=== PATIENT | male | born 1970 | race Caucasian/White ===

== ENCOUNTER 2022-07-17 09:24 | Emergency (ER) | payer SELFPAY ==
[2022-07-17 09:25] VITALS: BP 145/96; PULSE 87; RESP 14; TEMP 36.8; O2SAT 97; BMI 20.9
--- NOTE | 2022-07-17 09:27 | XRR_ITS ---
PROCEDURE INFORMATION: Exam: XR Chest Exam date and time: 07/17/2022 9:43 AM Age: 52 years old Clinical indication: Cough and dyspnea; Additional info: Dyspnea/cough TECHNIQUE: Imaging protocol: Radiologic exam of the chest. Views: 1 view. COMPARISON: No relevant prior studies available. FINDINGS: Lungs: The lung parenchyma is clear. Pleural spaces: No pneumothorax. No pleural effusion. Heart/Mediastinum: The cardiomediastinal silhouette is within normal limits. Bones/joints: Unremarkable. XR/XR chest 1V portable [id number] IMPRESSION: No acute cardiopulmonary abnormality.
[2022-07-17 09:32] VITALS: BP 145/96; PULSE 77; RESP 17; O2SAT 98
--- NOTE | 2022-07-17 09:37 | ECG_ITS ---
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 Measurements Intervals [place] Rate: 80 P: 62 AR: 152 QRS: 54 QRSD: 116 T: 50 QT: 383 QTc: 442 Interpretive Statements SINUS RHYTHM MODERATE INTRAVENTRICULAR CONDUCTION DELAY [110+ ms QRS DURATION] No previous ECG available for comparison Electronically Signed On 07-17-2022 11:53:14 CDT by Christo Hernandez M.D. [email or web address]
[2022-07-17] MEDS: sodium chloride 0.9% 1,000 ML 999 ML IV (09:50)
[2022-07-17 09:51] LABS: Basophils # 0.1 10^3/uL (0.0-0.1); Basophils % 0.7 %; Eosinophils # 0.1 10^3/uL (0.0-0.8); Eosinophils % 1.1 %; Lymphocytes # 1.8 10^3/uL (0.8-4.8); Lymphocytes % 25.9 %; Mean Corpuscular HGB Conc 32.6 g/dL (30.0-36.0); Mean Corpuscular Hemoglobin 31.1 pg (28.0-34.0); Mean Corpuscular Volume 95.6 fl (80-94); Mean Platelet Volume 9.6 fL (7.4-10.4); Monocytes # 0.6 10^3/uL (0.2-0.9); Monocytes % 7.9 %; Neutrophils # 4.48 10^3/uL (1.8-7.7); Nucleated Red Blood Cells % 0 %; Platelet Count 300 10^3/cmm (130-400); Red Cell Distribution Width 13.2 % (12.1-15.1)
[2022-07-17 09:52] LABS: Glucose Point of Care 82 mg/dL (70-110)
[2022-07-17 10:02] VITALS: RESP 18
--- NOTE | 2022-07-17 10:35 | ED_ITS ---
HPI - Dizziness General: Chief Complaint: Dizziness Stated Complaint: HYPERTENSION Time Seen by Provider: 07/17/22 09:26 Source: patient Mode of arrival: EMS History of Present Illness: HPI Narrative: 52-year-old male presents emergency room with complaint of near syncopal episode and elevated blood pressure. 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 He never actually fell. He states he feels much better now he denies any abdominal or chest pain or shortness of breath. He felt really weak and dizzy for a time after that by the time he arrived here he states all of his symptoms have resolved. MD elicited complaint: dizziness and lightheadedness Onset (ago): minute(s) Timing: sudden onset Severity: mild Exacerbating factors: change in body position Relieving factors: remaining still Associated symptoms: Denies abnormal vaginal bleeding, change in hearing, chest pain, chills, cough, diaphoresis, ear discharge, ear pressure, fevers/chills, headache(s), malaise, nausea, nasal congestion, palpitations, rash, short of breath, syncope, tinnitus, vomiting or weakness Associated neuro symptoms: Deny confusion, difficulty speaking, dysphagia, diplopia, extremity weakness, facial numbness, facial weakness, gait changes, numbness in extremities or visual changes Review of Systems Const: Denies: fever(s), chills, fatigue, malaise or diaphoresis ENMT: Denies: ear discharge, change in hearing, tinnitus or nasal congestion Card: Denies: chest pain, palpitations or syncope Resp: Denies: dyspnea, productive cough or non-productive cough GI: Denies: abdominal pain, nausea, vomiting or dysphagia : Denies: flank pain, dysuria, urinary frequency or urinary urgency Skin/Breast: Denies: rash or pruritus Neuro: Denies: headache(s), numbness in extremities or confusion Physical Exam Const: GENERAL APPEARANCE: cooperative and comfortable ORIENTATION/CONSCIOUSNESS: Yes awake, Yes oriented to person, Yes oriented to place and Yes oriented to time HENMT: COMMON NORMALS: normocephalic, atraumatic and hearing grossly normal bilaterally HEAD & SCALP: normocephalic and atraumatic Resp: COMMON NORMALS: normal respiratory effort, No retractions, No use of accessory muscles and clear to auscultation bilaterally AUSCULTATION: clear to auscultation bilaterally Cardio: COMMON NORMALS: regular rate, regular rhythm and No murmurs present (Cardio) RATE: regular rate RHYTHM: regular rhythm GI: COMMON NORMALS: Soft to palpation and No hepatosplenomegaly present AUSCULTATION: Yes normoactive bowel sounds PALPATION: Yes Soft to palpation, No Tenderness to palpation present (GI), No Guarding due to palpation present (GI) and Yes No hepatosplenomegaly present Extremity: COMMON NORMALS: normal to inspection, capillary refill normal, no clubbing, cyanosis or edema, no calf tenderness and no pedal edema Neuro: SENSORIUM/ORIENTATION: Yes oriented to person, Yes oriented to place and Yes oriented to time Skin: COMMON NORMALS: no rashes or lesions noted GENERAL SKIN EXAM: no rashes or lesions noted Course Vital Signs: Vital signs: Vital Signs Temperature 98.2 F 07/17/22 09:25 Pulse Rate 77 07/17/22 09:32 Respiratory Rate 18 07/17/22 10:02 Blood Pressure 145/96 07/17/22 09:32 Pulse Oximetry 98 07/17/22 09:32 Oxygen Delivery Me thod Room Air 07/17/22 09:25 MDM - Dizziness Medical Decision Making Patient seen after near syncopal episode. Nurses notes that he actually passed out I confirmed with him he said he never lost consciousness. He felt like he was about to go down he managed to catch himself on a pallet that had been working off of. He is feeling much better now he never had any chest pain with this episode fluids seem to have resolved all of his symptoms. Labs and imaging reviewed. He has no focal neurologic deficits noted there is no head trauma no sign of intracranial bleed no localizing symptoms suggesting TIA or CVA. We will discharge patient home encouraged to rest increase fluid intake if persistent symptoms or changes symptoms return to his primary care doctor or to the emergency room. Medical Records I reviewed the patient's medical records. Lab Data I reviewed the patient's lab results. 07/17/22 09:20 07/17/22 10:34 Radiology Impressions Chest X-Ray 07/17/22 09:27 IMPRESSION: No acute cardiopulmonary abnormality. Head CT 07/17/22 10:36 IMPRESSION: 1. No evidence of intracranial hemorrhage or mass effect. 2. No acute intracranial findings. Laboratory Results WBC 7.0 10^3/uL (4.0-10.0) 07/17/22 09:20 RBC 4.50 10^6/uL (4.1-5.3) 07/17/22 09:20 Hgb 14.0 g/dL (11.7-16.6) 07/17/22 09:20 Hct 43.0 % (42.0-52.0) 07/17/22 09:20 MCV 95.6 fl (80-94) H 07/17/22 09:20 MCH 31.1 pg (28.0-34.0) 07/17/22 09:20 MCHC 32.6 g/dL (30.0-36.0) 07/17/22 09:20 RDW 13.2 % (12.1-15.1) 07/17/22 09:20 Plt Count 300 10^3/cmm (130-400) 07/17/22 09:20 MPV 9.6 fL (7.4-10.4) 07/17/22 09:20 Neut % (Auto) 64.0 % 07/17/22 09:20 Lymph % (Auto) 25.9 % 07/17/22 09:20 [place] % (Auto) 7.9 % 07/17/22 09:20 Eos % (Auto) 1.1 % 07/17/22 09:20 Baso % (Auto) 0.7 % 07/17/22 09:20 Neut # (Auto) 4.48 10^3/uL (1.8-7.7) 07/17/22 09:20 Lymph # (Auto) 1.8 10^3/uL (0.8-4.8) 07/17/22 09:20 [place] # (Auto) 0.6 10^3/uL (0.2-0.9) 07/17/22 09:20 Eos # (Auto) 0.1 10^3/uL (0.0-0.8) 07/17/22 09:20 Baso # (Auto) 0.1 10^3/uL (0.0-0.1) 07/17/22 09:20 Nucleated RBC % (auto) 0 % 07/17/22 09:20 Nucleated RBCs # 0.0 /100WBC 07/17/22 09:20 Sodium 139 mmol/L (136-145) 07/17/22 10:34 Potassium 3.8 mmol/L (3.5-5.1) 07/17/22 10:34 Chloride 101 mmol/L (98-107) 07/17/22 10:34 Carbon Dioxide 23 mmol/L (22-29) 07/17/22 10:34 Anion Gap 18.8 (5-19) 07/17/22 10:34 BUN 7 mg/dL (6-20) 07/17/22 10:34 Creatinine 0.5 mg/dL (0.7-1.2) L 07/17/22 10:34 GFR Calculation 173.9 mL/min (90-130) H 07/17/22 10:34 Glucose 75 mg/dL (65-115) 07/17/22 10:34 POC Glucose 82 mg/dL (70-110) 07/17/22 09:49 Calculated Osmolality 285 mOsm/kg (285-295) 07/17/22 10:34 Calcium 8.3 mg/dL (8.5-10.5) L 07/17/22 10:34 Discharge Plan Discharge Patient Disposition: Home Clinical Impression: Orthostatic hypotension Condition: Stable Prescriptions: No Action multivitamin Tablet 1 tab PO QAM Calcium 500 500 mg calcium (1,250 mg) Tablet 500 mg PO QAM Aleve 220 mg Tablet 220 mg PO QAM vitamin B complex Tablet 1 tab PO QAM Claritin 10 mg Tablet 10 mg PO QAM Vitamin D3 25 mcg (1,000 unit) Capsule 25 mcg PO QAM Discharge Orders: Discharge ED (Routine); Ordered 07/17/22 Ordered By: Matt Jeffries Referrals: Everardo Hawk MD [Primary Care Provider] - Discharge Diet: Usual diet Discharge Activity: Increase activity as tolerated Patient Instructions: Opioid Safety, Pain Management Activity Restrictions/Additional Instructions: You were seen today for a near syncopal episode. Suspect that due to postural changes your blood pressure change. Your symptoms resolved with fluids. Your work-up in the emergency room including imaging of the head and laboratory studies was unremarkable. Recommend rest the remainder today and increase fluid intake. If you have further problems or persistent symptoms follow-up your primary care doctor. Stand Alone Forms: Work/School Release Coding Level of Care Code ED Litigation Associate for Carolg Ermias
--- NOTE | 2022-07-17 10:36 | CT_ITS ---
WS: [id number] CT HEAD TECHNIQUE: Noncontrast CT of the head obtained from the skullbase to the vertex. CLINICAL INFORMATION: near syncope COMPARISON: None. DLP: 1021.[address] scans at [facility] use at least one of these dose optimization techniques: automated e xposure control; mA and/or kV adjustment per patient size (includes targeted exams where dose is matc hed to clinical indication); or iterative reconstruction. FINDINGS: No evidence of intracranial hemorrhage or mass effect. Ventricular system and basal cisterns are warren nt. Mild small vessel changes with mild parenchymal volume loss. No extra-axial fluid collections. No evidence of mass or mass effect Mild mucosal thickening in the paranasal sinuses. Mastoid air cells well aerated. Normal posterior na sopharynx. CT/CT head wo con* [id number] IMPRESSION: 1. No evidence of intracranial hemorrhage or mass effect. 2. No acute intracranial findings.
[2022-07-17 11:19] LABS: Anion Gap 18.8 (5-19); Blood Urea Nitrogen 7 mg/dL (6-20); Calcium 8.3 mg/dL (8.5-10.5); Carbon Dioxide 23 mmol/L (22-29); Chloride 101 mmol/L (98-107); Glomerular Filtration Rate 173.9 mL/min (90-130); Glucose 75 mg/dL (65-115); Osmolality Calculated 285 mOsm/kg (285-295); Potassium 3.8 mmol/L (3.5-5.1); Sodium 139 mmol/L (136-145)
[2022-07-17 11:37] VITALS: PULSE 70; RESP 18; O2SAT 98
== END 2022-07-17 11:40 | disposition home or self-care (01) ==
PROVIDERS: Emergency Provider Family Medicine; PCP Family Medicine
DX: I95.1 Orthostatic hypotension (principal)
CPT/HCPCS: 36415; 36416; 70450; 71045; 80048; 82962; 85025; 93005; 99285; J7030

== ENCOUNTER 2024-04-30 11:07 | Emergency (ER) | payer BC, MEDICAID, SELFPAY ==
[2024-04-30 11:24] VITALS: BP 160/98; PULSE 94; RESP 18; TEMP 36.7; O2SAT 98; BMI 20.9
--- NOTE | 2024-04-30 11:24 | XR_ITS ---
WS: [id number] Exam: XR chest 1V portable [id number] Date/Time of Exam: 04/30/2024 11:24 AM Reason For Exam: cp Comparison 07/17/2022. Lungs are fully expanded and clear. Normal cardiomediastinal silhouette. No pleural effusions. Bony structures are intact. XR/XR chest 1V portable [id number] IMPRESSION: 1. Negative chest.
--- NOTE | 2024-04-30 11:26 | W.ED.COVID ---
HPI - COVID General: Chief Complaint: COVID symptoms Stated Complaint: flu like symptoms Time Seen by Provider: 04/30/24 11:16 Source: patient Mode of arrival: ambulatory Limitations: no limitations History of Present Illness: 54-year-old male states he been having flulike illness. States he has not felt well for the last 2 weeks but states for last 3 days has been having cough body aches fever and chills. States also been having some sharp chest pains with his cough. He denies any worsening improving factors. COVID 19 common symptoms: positive fever(s), chills, non-productive cough and dyspnea; negative body aches, headache(s), throat pain, nausea, vomiting or diarrhea COVID 19 other sytmptoms: positive chest pain COVID Results: SARS-CoV-2 (PCR) Negative (Negative) 04/30/24 11:51 04/30/24 Related Data Home Medications ?Medication ?Instructions ?Recorded ?Confirmed calcium carbonate 500 mg PO QAM 07/17/22 04/30/24 cholecalciferol (vitamin D3) 25 25 mcg PO QAM 07/17/22 04/30/24 mcg (1,000 unit) capsule (Vitamin D3) loratadine 10 mg tablet (Claritin) 10 mg PO QAM 07/17/22 04/30/24 multivitamin 1 tab PO QAM 07/17/22 04/30/24 naproxen sodium 220 mg tablet 220 mg PO QAM 07/17/22 04/30/24 (Aleve) vitamin B complex 1 tab PO QAM 07/17/22 04/30/24 Allergies Allergy/AdvReac Type Severity Reaction Status Date / Time codeine Allergy ALGY-Difficulty Verified 07/17/22 10:17 Breathing Review of Systems Const: Reports: fever(s), chills and change in appetite; Denies: body aches ENMT: Denies: throat pain or dental pain Card: Reports: chest pain Resp: Reports: dyspnea and non-productive cough GI: Denies: abdominal pain, nausea, vomiting or diarrhea : Denies: dysuria Musc: Denies: neck pain or back pain Skin/Breast: Denies: rash Neuro: Denies: headache(s) Physical Exam Const: COMMON NORMALS: no acute distress, patient oriented x3 and healthy appearing HENMT: COMMON NORMALS: normocephalic and atraumatic HEAD & SCALP: normocephalic and atraumatic Neck/C-Spine: COMMON NORMALS: full ROM and supple Chest: COMMONS NORMALS: normal inspection of the chest Resp: COMMON NORMALS: normal respiratory effort, No retractions, No use of accessory muscles and clear to auscultation bilaterally AUSCULTATION: clear to auscultation bilaterally Cardio: COMMON NORMALS: regular rate, regular rhythm and No murmurs present (Cardio) RATE: regular rate RHYTHM: regular rhythm Extremity: COMMON NORMALS: normal to inspection and full ROM Neuro: COMMON NORMALS: patient oriented x3, moves all extremities and no focal motor deficits Psych: COMMON NORMALS: mental status grossly normal, Normal thought process present and cooperative THOUGHT PROCESS: Normal thought process present Skin: COMMON NORMALS: no rashes or lesions noted and no wounds GENERAL SKIN EXAM: no rashes or lesions noted Course Vital Signs: Vital signs: Vital Signs Temperature 98.1 F 04/30/24 11:24 Pulse Rate 89 04/30/24 11:57 Respiratory Rate 16 04/30/24 11:57 Blood Pressure 160/104 04/30/24 11:57 Pulse Oximetry 97 04/30/24 11:57 Oxygen Delivery Me thod Room Air 04/30/24 11:57 MDM - COVID Medical Decision Making Patient presents here with upper respiratory infection also hyponatremia he feels much improved after IV fluids imaging here is normal he stable for discharge she is follow-up with PCP return if worsening. Medical Records I reviewed the patient's medical records. Lab Data I reviewed the patient's lab results. 04/30/24 11:50 04/30/24 13:18 Radiology Impressions Chest X-Ray 04/30/24 11:24 IMPRESSION: 1. Negative chest. Laboratory Results WBC 7.06 10^3/uL (3.29-11.43) 04/30/24 11:50 RBC 4.29 10^6/uL (3.85-5.65) 04/30/24 11:50 Hgb 13.70 g/dL (11.27-16.99) 04/30/24 11:50 Hct 39.8 % (37-53) 04/30/24 11:50 MCV 92.8 fl (82-101) 04/30/24 11:50 MCH 31.9 pg (27-33) 04/30/24 11:50 MCHC 34.4 g/dL (30-55) 04/30/24 11:50 RDW 13.4 % (12.1-15.1) 04/30/24 11:50 Plt Count 280 10^3/cmm (157-399) 04/30/24 11:50 MPV 9.0 fL (7.4-10.4) 04/30/24 11:50 Neut % (Auto) 65.3 % 04/30/24 11:50 Lymph % (Auto) 23.5 % 04/30/24 11:50 [place] % (Auto) 9.6 % 04/30/24 11:50 Eos % (Auto) 0.6 % 04/30/24 11:50 Baso % (Auto) 0.6 % 04/30/24 11:50 Neut # (Auto) 4.61 10^3/uL (1.8-7.7) 04/30/24 11:50 Lymph # (Auto) 1.7 10^3/uL (0.8-4.8) 04/30/24 11:50 [place] # (Auto) 0.7 10^3/uL (0.2-0.9) 04/30/24 11:50 Eos # (Auto) 0.0 10^3/uL (0.0-0.8) 04/30/24 11:50 Baso # (Auto) 0.0 10^3/uL (0.0-0.1) 04/30/24 11:50 Nucleated RBC % (auto) 0 % 04/30/24 11:50 Nucleated RBCs # 0.0 /100WBC 04/30/24 11:50 Sodium 127 mmol/L (136-145) L 04/30/24 13:18 Potassium 3.9 mmol/L (3.5-5.1) 04/30/24 13:18 Chloride 91 mmol/L (98-107) L 04/30/24 13:18 Carbon Dioxide 18 mmol/L (22-29) L 04/30/24 13:18 Anion Gap 21.9 (5-19) H 04/30/24 13:18 BUN 6 mg/dL (6-20) 04/30/24 13:18 Creatinine 0.5 mg/dL (0.7-1.2) L 04/30/24 13:18 GFR Calculation 172.6 mL/min (90-130) H 04/30/24 13:18 Glucose 86 mg/dL (65-115) 04/30/24 13:18 Calculated Osmolality 261 mOsm/kg (285-295) L 04/30/24 13:18 Calcium 7.9 mg/dL (8.5-10.5) L 04/30/24 13:18 Total Bilirubin 0.3 mg/dL (0.15-1.2) 04/30/24 11:50 AST 31 U/L (0-40) 04/30/24 11:50 ALT 22 U/L (0-41) 04/30/24 11:50 Alkaline Phosphatase 158 U/L (40-130) H 04/30/24 11:50 Troponin T Baseline 7 ng/L (0-15) 04/30/24 11:50 Troponin T 120 Minute 6.00 ng/L (0-15) 04/30/24 13:34 Total Protein 6.8 g/dL (6.6-8.7) 04/30/24 11:50 Albumin 4.5 g/dL (3.5-5.2) 04/30/24 11:50 Globulin 2.3 g/dL (1.3-4.6) 04/30/24 11:50 Lipase 47 U/L (13-60) 04/30/24 11:50 Influenza A (PCR) Negative (Negative) 04/30/24 11:51 Influenza Type B (PCR) Negative (Negative) 04/30/24 11:51 RSV (PCR) Negative (Negative) 04/30/24 11:51 SARS-CoV-2 (PCR) Negative (Negative) 04/30/24 11:51 SARS-CoV-2 (PCR) Negative (Negative) 04/30/24 11:51 04/30/24 All radiology interpretation(s) finalized by discharge Discharge Plan Discharge Patient Disposition: Home Clinical Impression: Upper respiratory infection, Hyponatremia Condition: Stable Prescriptions: No Action multivitamin Tablet 1 tab PO QAM calcium carbonate [Calcium 500] 500 mg calcium (1,250 mg) Tablet 500 mg PO QAM naproxen sodium [Aleve] 220 mg Tablet 220 mg PO QAM vitamin B complex Tablet 1 tab PO QAM loratadine [Claritin] 10 mg Tablet 10 mg PO QAM cholecalciferol (vitamin D3) [Vitamin D3] 25 mcg (1,000 unit) Capsule 25 mcg PO QAM Discharge Orders: Discharge ED (Routine); Ordered 04/30/24 Ordered By: India Banerjee Referrals: Everardo Hawk MD [Primary Care Provider] - 4-7 days Discharge Diet: Advance as tolerated Discharge Activity: Resume usual activity Patient Instructions: Hyponatremia (ED), Upper Respiratory Infection (ED) Print Language: Nepalese Coding Level of Care Code ED Livestock Caretaker for Stacie Monson
--- NOTE | 2024-04-30 11:45 | ECG_ITS ---
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 Measurements Intervals [place] Rate: 88 P: 50 MI: 134 QRS: -38 QRSD: 145 T: 19 QT: 368 QTc: 446 Interpretive Statements SINUS RHYTHM LEFT AXIS DEVIATION [QRS AXIS < -30] RIGHT BUNDLE BRANCH BLOCK [120+ ms QRS DURATION, UPRIGHT V1, 40+ ms S IN I/aVL/V4/V5/V6] Compared to ECG 07/17/2022 09:37:13 Left-axis deviation now present Right bundle-branch block now present Intraventricular conduction delay no longer present Electronically Signed On 04-30-2024 17:50:26 DYE TUB TENDER by Christo Hernandez M.D. [email or web address]
[2024-04-30 11:56] VITALS: O2SAT 97
[2024-04-30 11:57] VITALS: BP 160/104; PULSE 89; RESP 16; O2SAT 97
[2024-04-30 12:16] LABS: Basophils % 0.6 %; Eosinophils % 0.6 %; Hematocrit 39.8 % (37-53); Lymphocytes # 1.7 10^3/uL (0.8-4.8); Lymphocytes % 23.5 %; Mean Corpuscular HGB Conc 34.4 g/dL (30-55); Mean Corpuscular Hemoglobin 31.9 pg (27-33); Mean Corpuscular Volume 92.8 fl (82-101); Monocytes # 0.7 10^3/uL (0.2-0.9); Monocytes % 9.6 %; Neutrophils # 4.61 10^3/uL (1.8-7.7); Neutrophils % 65.3 %; Nucleated Red Blood Cells % 0 %; Platelet Count 280 10^3/cmm (157-399); Red Blood Count 4.29 10^6/uL (3.85-5.65); Red Cell Distribution Width 13.4 % (12.1-15.1); White Blood Count 7.06 10^3/uL (3.29-11.43)
[2024-04-30 12:34] LABS: Influenza A NEGATIVE (Negative); Influenza B NEGATIVE (Negative); Respiratory Syncytial Virus Ce NEGATIVE (Negative); SARS-CoV-2 PCR NEGATIVE (Negative)
[2024-04-30 12:35] LABS: Troponin(5th) Baseline 7 ng/L (0-15)
[2024-04-30 12:40] LABS: Alanine Aminotransferase 22 U/L (0-41); Albumin Level 4.5 g/dL (3.5-5.2); Alkaline Phosphatase 158 U/L (40-130); Anion Gap 23.1 (5-19); Aspartate Amino Transferase 31 U/L (0-40); Blood Urea Nitrogen 7 mg/dL (6-20); Calcium 8.6 mg/dL (8.5-10.5); Carbon Dioxide 20 mmol/L (22-29); Chloride 87 mmol/L (98-107); Creatinine Clr Calc Pharmacy 134.1583; Globulin 2.3 g/dL (1.3-4.6); Glomerular Filtration Rate 139.9 mL/min (90-130); Glucose 89 mg/dL (65-115); Lipase 47 U/L (13-60); Osmolality Calculated 259 mOsm/kg (285-295); Potassium 4.1 mmol/L (3.5-5.1); Sodium 126 mmol/L (136-145); Total Bilirubin 0.3 mg/dL (0.15-1.2); Total Protein 6.8 g/dL (6.6-8.7)
[2024-04-30] MEDS: sodium chloride 0.9% 1,000 ML 999 ML IV ×2 (12:57→13:08)
--- NOTE | 2024-04-30 13:28 | ECG_ITS ---
[facility]: [facility]30 Pat Name: Marty Shook Department: Room: Gender: Male Account Executive Trainee: : 1970 Requested By: India Banerjee Order Number: [id number] [place] MD: Measurements Intervals [place] Rate: 83 P: 62 IA: 139 QRS: -6 QRSD: 152 T: 22 QT: 386 QTc: 454 Interpretive Statements SINUS RHYTHM RIGHT BUNDLE BRANCH BLOCK [120+ ms QRS DURATION, UPRIGHT V1, 40+ ms S IN I/aVL/V4/V5/V6] [email or web address]
[2024-04-30 13:42] LABS: Anion Gap 21.9 (5-19); Blood Urea Nitrogen 6 mg/dL (6-20); Calcium 7.9 mg/dL (8.5-10.5); Carbon Dioxide 18 mmol/L (22-29); Chloride 91 mmol/L (98-107); Glomerular Filtration Rate 172.6 mL/min (90-130); Glucose 86 mg/dL (65-115); Osmolality Calculated 261 mOsm/kg (285-295); Potassium 3.9 mmol/L (3.5-5.1); Sodium 127 mmol/L (136-145)
[2024-04-30 14:19] VITALS: BP 161/98; PULSE 87; O2SAT 98
[2024-04-30 14:30] VITALS: BP 141/116
== END 2024-04-30 14:41 | disposition home or self-care (01) ==
PROVIDERS: Emergency Provider Emergency Medicine; PCP Family Medicine
DX: J06.9 Acute upper respiratory infection, unspecified (principal); E87.1 Hypo-osmolality and hyponatremia; Z11.52 Encounter for screening for COVID-19
CPT/HCPCS: 36415; 71045; 80048; 80053; 83690; 84484; 85025; 87637; 93005; 96360; 96361; 99285; J7030

== ENCOUNTER 2024-05-23 11:12 | Emergency (ER) | payer BC, MEDICAID, SELFPAY ==
[2024-05-23 11:26] VITALS: PULSE 91; RESP 17; TEMP 36.6; O2SAT 97; BMI 23.5
[2024-05-23 11:38] LABS: Basophils % 0.4 %; Eosinophils # 0.1 10^3/uL (0.0-0.8); Eosinophils % 0.9 %; Hematocrit 39.4 % (37-53); Lymphocytes # 1.1 10^3/uL (0.8-4.8); Lymphocytes % 15.7 %; Mean Corpuscular HGB Conc 33.2 g/dL (30-55); Mean Corpuscular Hemoglobin 31.3 pg (27-33); Monocytes # 0.7 10^3/uL (0.2-0.9); Monocytes % 10.3 %; Neutrophils # 4.82 10^3/uL (1.8-7.7); Neutrophils % 72.3 %; Nucleated Red Blood Cells % 0 %; Platelet Count 264 10^3/cmm (157-399); Red Blood Count 4.19 10^6/uL (3.85-5.65); Red Cell Distribution Width 13.5 % (12.1-15.1); White Blood Count 6.68 10^3/uL (3.29-11.43)
[2024-05-23 11:54] LABS: Alanine Aminotransferase 31 U/L (0-41); Albumin Level 4.1 g/dL (3.5-5.2); Alkaline Phosphatase 154 U/L (40-130); Anion Gap 16.9 (5-19); Aspartate Amino Transferase 60 U/L (0-40); Blood Urea Nitrogen 6 mg/dL (6-20); Calcium 8.8 mg/dL (8.5-10.5); Carbon Dioxide 22 mmol/L (22-29); Chloride 96 mmol/L (98-107); Creatinine Clr Calc Pharmacy 131.5839; Globulin 2.9 g/dL (1.3-4.6); Glomerular Filtration Rate 139.9 mL/min (90-130); Glucose 125 mg/dL (65-115); Lipase 28 U/L (13-60); Osmolality Calculated 271 mOsm/kg (285-295); Potassium 3.9 mmol/L (3.5-5.1); Sodium 131 mmol/L (136-145); Total Bilirubin 0.4 mg/dL (0.15-1.2)
--- NOTE | 2024-05-23 12:11 | ED_ITS ---
HPI - Abdominal Pain 2 General: Chief Complaint: Abdominal Pain Stated Complaint: rt side abd pain Time Seen by Provider: 05/23/24 11:28 History of Present Illness: 54-year-old man who presents to the [facility] room with right lower quadrant abdominal pain. He says this started about 3 days ago and has continued to worsen and today he woke up with a swelling in his right groin area. No nausea or vomiting. No fevers. No dysuria. Still with normal bowel movements. Related Data Home Medications ?Medication ?Instructions ?Recorded ?Confirmed calcium carbonate 500 mg PO QAM 07/17/2204/30 cholecalciferol (vitamin D3) 25 25 mcg PO QAM 07/17/22 04/30/24 mcg (1,000 unit) capsule (Vitamin D3) loratadine 10 mg tablet (Claritin) 10 mg PO QAM 04/30/24 multivitamin 1 tab PO QAM 07/17/22 naproxen sodium 220 mg tablet 220 mg PO QAM 07/17/22 0 04/30/24 (Aleve) vitamin B complex 1 tab PO QAM 07/17/22 Allergies Allergy/AdvReac Type Severity Reaction Status Date / Time codeine Allergy ALGY-Difficulty Verified 07/17/22 10:17 Breathing Review of Systems 2 Narrative: Constitutional symptoms: Negative except as documented in HPI. Skin symptoms: Negative except as documented in HPI. Eye symptoms: Negative except as documented in HPI. ENMT symptoms: Negative except as documented in HPI. Respiratory symptoms: Negative except as documented in HPI. Cardiovascular symptoms: Negative except as documented in HPI. Gastrointestinal symptoms: Negative except as documented in HPI. Genitourinary symptoms: Negative except as documented in HPI. Musculoskeletal symptoms: Negative except as documented in HPI. Neurologic symptoms: Negative except as documented in HPI. Psychiatric symptoms: Negative except as documented in HPI. Endocrine symptoms: Negative except as documented in HPI. Physical Exam 2 Narrative: EXAM NARRATIVE: General: Alert, no acute distress. Skin: Warm, dry. Head: Normocephalic, atraumatic. Neck: Supple, trachea midline. Eye: Extraocular movements are intact. Ears, nose, mouth and throat: mucosa moist. Cardiovascular: Regular, Normal peripheral perfusion. Respiratory: Lungs are clear to auscultation, respirations are non-labored, breath sounds are equal, Symmetrical chest wall expansion. Gastrointestinal: Soft, Non distended, no abdominal tenderness other than he does have some swelling that could be a small inguinal hernia on the right side. Musculoskeletal: Normal ROM, no deformity. Neurological: Alert and oriented, No focal neurological deficit observed. Psychiatric: Cooperative, appropriate mood & affect. Course 2 Vital Signs: Vital signs: Vital Signs Temperature 97.9 F 05/23/24 11:26 Pulse Rate 91 05/23/24 11:26 Respiratory Rate 17 05/23/24 11:26 Pulse Oximetry 97 05/23/24 11:26 MDM - Abdominal Pain Medical Decision Making Medical decision making: Differential diagnosis for this patient with right lower quadrant abdominal pain including but not limited to and based on the above HPI, review of systems and physical exam: Ureterolithiasis. Urinary tract infection. Appendicitis. colitis. small bowel obstruction. Crohn's flare. Pancreatitis. Cholelithiasis or cholecystitis. Hepatitis. Diverticulitis. Constipation. ovarian cyst. ovarian torsion Lab Review: Laboratory results were reviewed and interpreted by myself the emergency room physician. Lab work is unremarkable. No leukocytosis. No anemia. No renal failure. I reviewed the patient's medical record Reexamination: Placed the patient in Trendelenburg and instructed him on self reduction of the hernia and he was able to reduce the hernia. He says all pain has completely resolved. The hernia has not come back out. No increased work of breathing. No altered mental status. We discussed follow-up with general surgery if this needs repaired. Also discussed that if it comes out and he cannot reduce it he needs to return to the emergency room because this is an emergency. Assessment and plan: Inguinal hernia ?Patient self reduced hernia after being instructed on how - Discharged home - Discussed plan with patient. Answered any questions. - Evaluation and treatment of this problem were appropriate in the emergency setting. Lab Data 05/23/24 11:32 05/23/24 11:32 Labs/Radiology: Laboratory Results WBC 6.68 10^3/uL (3.29-11.43) 05/23/24 11:32 RBC 4.19 10^6/uL (3.85-5.65) 05/23/24 11:32 Hgb 13.10 g/dL (11.27-16.99) 05/23/24 11:32 Hct 39.4 % (37-53) 05/23/24 11:32 MCV 94.0 fl (82-101) 05/23/24 11:32 MCH 31.3 pg (27-33) 05/23/24 11:32 MCHC 33.2 g/dL (30-55) 05/23/24 11:32 RDW 13.5 % (12.1-15.1) 05/23/24 11:32 Plt Count 264 10^3/cmm (157-399) 05/23/24 11:32 MPV 9.0 fL (7.4-10.4) 05/23/24 11:32 Neut % (Auto) 72.3 % 05/23/24 11:32 Lymph % (Auto) 15.7 % 05/23/24 11:32 [place] % (Auto) 10.3 % 05/23/24 11:32 Eos % (Auto) 0.9 % 05/23/24 11:32 Baso % (Auto) 0.4 % 05/23/24 11:32 Neut # (Auto) 4.82 10^3/uL (1.8-7.7) 05/23/24 11:32 Lymph # (Auto) 1.1 10^3/uL (0.8-4.8) 05/23/24 11:32 [place] # (Auto) 0.7 10^3/uL (0.2-0.9) 05/23/24 11:32 Eos # (Auto) 0.1 10^3/uL (0.0-0.8) 05/23/24 11:32 Baso # (Auto) 0.0 10^3/uL (0.0-0.1) 05/23/24 11:32 Nucleated RBC % (auto) 0 % 05/23/24 11:32 Nucleated RBCs # 0.0 /100WBC 05/23/24 11:32 Sodium 131 mmol/L (136-145) L 05/23/24 11:32 Potassium 3.9 mmol/L (3.5-5.1) 05/23/24 11:32 Chloride 96 mmol/L (98-107) L 05/23/24 11:32 Carbon Dioxide 22 mmol/L (22-29) 05/23/24 11:32 Anion Gap 16.9 (5-19) 05/23/24 11:32 BUN 6 mg/dL (6-20) 05/23/24 11:32 Creatinine 0.6 mg/dL (0.7-1.2) L 05/23/24 11:32 GFR Calculation 139.9 mL/min (90-130) H 05/23/24 11:32 Glucose 125 mg/dL (65-115) H 05/23/24 11:32 Calculated Osmolality 271 mOsm/kg (285-295) L 05/23/24 11:32 Calcium 8.8 mg/dL (8.5-10.5) 05/23/24 11:32 Total Bilirubin 0.4 mg/dL (0.15-1.2) 05/23/24 11:32 AST 60 U/L (0-40) H 05/23/24 11:32 ALT 31 U/L (0-41) 05/23/24 11:32 Alkaline Phosphatase 154 U/L (40-130) H 05/23/24 11:32 C-Reactive Protein 3.0 mg/L (0.0-4.9) 05/23/24 11:32 Total Protein 7.0 g/dL (6.6-8.7) 05/23/24 11:32 Albumin 4.1 g/dL (3.5-5.2) 05/23/24 11:32 Globulin 2.9 g/dL (1.3-4.6) 05/23/24 11:32 Lipase 28 U/L (13-60) 05/23/24 11:32 No radiology studies performed this visit Discharge Plan Discharge Patient Disposition: Home Clinical Impression: Inguinal hernia Qualifiers: Obstruction and gangrene presence: without obstruction or gangrene Laterality: unilateral Recurrence: non-recurrent Qualified Code(s): K40.90 - Unilateral inguinal hernia, without obstruction or gangrene, not specified as recurrent Condition: Stable Prescriptions: No Action multivitamin Tablet 1 tab PO QAM calcium carbonate [Calcium 500] 500 mg calcium (1,250 mg) Tablet 500 mg PO QAM naproxen sodium [Aleve] 220 mg Tablet 220 mg PO QAM vitamin B complex Tablet 1 tab PO QAM loratadine [Claritin] 10 mg Tablet 10 mg PO QAM cholecalciferol (vitamin D3) [Vitamin D3] 25 mcg (1,000 unit) Capsule 25 mcg PO QAM Discharge Orders: Discharge ED (Routine); Ordered 05/23/24 Ordered By: Hali Menchaca Referrals: Rj Carr MD [Physician] - (If you continue to have issues with this hernia please either go see your primary or call Dr. Rollins for follow-up.) Everardo Hawk MD [Primary Care Provider] - Discharge Diet: Usual diet Discharge Activity: Increase activity as tolerated Patient Instructions: Inguinal Hernia (ED), Opioid Safety, Pain Management Activity Restrictions/Additional Instructions: If hernia comes out again and you cannot reduce it then you need to return to the emergency room. Thank you for choosing [facility] for your healthcare needs today. Please realize this is an emergency room and that we are providing you with a medical screening exam and this may not be complete and all inclusive of all the testing and or work up that you may need to determine your ailment or severity of your illness. You have been screened and evaluated and felt safe for discharge. Health conditions do change or evolve sometimes and as such it is important that you follow up with your Primary Doctor to be re checked, 3-5 days is a general good time frame for follow up. You are always welcome to return to the ED for re assessment if your symptoms are worsening or you have new concerns Print Language: Guatemalan Coding Level of Care Code ED Derrick Follower for Stacie Monson
[2024-05-23 12:35] VITALS: PULSE 87; O2SAT 96
== END 2024-05-23 12:36 | disposition home or self-care (01) ==
PROVIDERS: Emergency Medicine; Emergency Provider Emergency Medicine; PCP Family Medicine
DX: K40.90 Unilateral inguinal hernia, without obstruction or gangrene, not specified as recurrent (principal)
CPT/HCPCS: 36415; 80053; 83690; 85025; 86140; 87040; 99284

== ENCOUNTER 2024-06-10 06:40 | Day surgery (SDC) | payer BC, MEDICAID, SELFPAY ==
[2024-06-10] VITALS (15 sets, daily range): BP systolic 117–151; BP diastolic 88–105; PULSE 87–104; RESP 11–20; TEMP 36.6–36.9; O2SAT 92–100
--- NOTE | 2024-06-10 07:09 | W.PM.OPSUD ---
Surgery/Procedure H&P Update DATE OF PROCEDURE: June 10, 2024 DATE H&P PERFORMED: 06/01/24 H&P UPDATE INFORMATION: I have reviewed H&P completed within last 30 days, I have examined patient prior to procedure and No changes to prior documentation CHANGES TO PREVIOUS DOCUMENTATION: Patient wishes to proceed with an open right inguinal hernia repair with mesh PLANNED PROCEDURE: Operation Date: 06/10/24 08:35 Proposed Procedures p Laparoscopic POSSIBLE OPEN RIGHT Inguinal Hernia Repair w/Mesh 64015 K46.9(Right) - Lucas Somers MD
[2024-06-10] MEDS: sodium chloride 0.9% 1,000 ML 30 ML IV (07:27)
--- NOTE | 2024-06-10 07:32 | ANES.PREANE2 ---
Pre-Anesthetic Assessment Height/Weight: Height 1.7 m Weight 72.575 kg Temp Pulse Resp BP Pulse Ox O2 Del Method 98.4 F 104 H 18 133/95 97 Room Air 06/10/24 07:07 06/10/24 07:07 06/10/24 07:07 06/10/24 07:07 06/10/24 07:07 06/10/24 07:09 Preop Diagnosis: Inguinal hernia Operation Date: 06/10/24 08:35 Proposed Procedures p Laparoscopic POSSIBLE OPEN RIGHT Inguinal Hernia Repair w/Mesh 46209 K46.9(Right) - Lucas Somers MD Familial anesthetic complications: none Was Beta Melanie taken within 24 hours: N/A Was Clonidine taken within 24 hours: N/A Last intake: Intake Last Liquid Date 06/09/24 Last Liquid Time 21:00 Last Solid Date 06/09/24 Last Solid Time 17:00 Social Alcohol and Tobacco 1 PPD pack(s) per day 3-4 beers per day Exam alert, oriented x 3, clear to auscultation bilaterally and regular rate & rhythm Airway Submandibular: within normal limits Cervical ROM: within normal limits Mallampati: Class II Dentition: other (bottom intact. Top missing most.) History/ROS No significant history except as noted and No significant complaints Pulmonary None reported CV/HEM None reported States low blood pressure None reported Hepatic None reported GI None reported Metabolic Diabetes Mellitus (States hypoglycemia. Does have neuropathy.) Musc/skel None reported Neuropsych Anxiety and Neuropathy (Hands/Feet numbness) Anesthetic Plan ASA status: 3 Anesthesia: General Risk of > 500 ml blood loss (7ml/kg in children): No Other Pertinent Information States he has had difficulty waking up with anesthetic gas. Medications/Allergies Home Medications ?Medication ?Instructions ?Recorded ?Confirmed ?Last Taken ?Type calcium carbonate 500 mg PO QAM 07/17/22 06/09/24 06/09/24 History cholecalciferol (vitamin D3) 25 25 mcg PO QAM 07/17/22 06/09/24 06/09/24 History mcg (1,000 unit) capsule (Vitamin D3) loratadine 10 mg tablet (Claritin) 10 mg PO QAM 07/17/22 06/09/24 06/09/24 History multivitamin 1 tab PO QAM 07/17/22 06/09/24 06/09/24 History vitamin B complex 1 tab PO QAM 07/17/22 06/09/24 06/09/24 History acetaminophen 500 mg tablet 1,000 mg PO QID PRN Pain 05/23/24 06/09/24 06/09/24 History (Tylenol Extra Strength) ibuprofen 800 mg tablet 800 mg PO Q8H PRN Pain 05/23/24 06/09/24 06/09/24 History oxcarbazepine 300 mg 300 mg PO DAILY 05/23/24 06/09/24 06/09/24 History tablet,extended release 24 hr Allergies Allergy/AdvReac Type Severity Reaction Status Date / Time codeine Allergy ALGY-Difficulty Verified 06/09/24 09:12 Breathing Current Medications Generic Name Dose Route Start Last Admin Trade Name Freq PRN Reason Stop Dose Admin Sodium Chloride 1,000 mls @ 30 mls/hr 06/10/24 07:00 06/10/24 07:27 Sodium Chloride 0.9% IV 06/11/24 06:59 30 mls/hr .Q24H JOSE A Administration PFSH Anesthesia Social History Smoking and tobacco/nicotine status: never used tobacco/nicotine Data Anesthesia Cardiac Studies: No Data to Display
[2024-06-10] MEDS: ceFAZolin 2,000 mg SDV 2000 MG IVP (08:09)
[2024-06-10] MEDS: BUPivacaine 0.25% INJ 10 mL 5 ML INJECTION (08:30)
[2024-06-10] MEDS: lidocaine-epi 1% 20 mL INJ 5 ML INJECTION (08:30)
--- NOTE | 2024-06-10 09:13 | PM.OP ---
Operative Report Date of procedure: June 10, 2024 Pre-op diagnosis: Right inguinal hernia Post-op diagnosis: same Post-op findings: Right direct and indirect inguinal hernia Procedure done: Open right inguinal hernia repair with mesh Implants: Plug and patch mesh medium Specimens removed/disposition: Cord lipoma Pathology: Cord lipoma sent to pathology Surgeon: Lucas Somers MD Hazardous Waste Material Technician: N/A Anesthesia: General Estimated blood loss (mL): 10 Complications: None Findings: Direct indirect right inguinal hernia. Dissected cord lipoma and sent to pathology. Used size medium plug and patch for repair. Condition: stable Disposition: same day Brief History: 54-year-old male who presented with a symptomatic right inguinal hernia. Discussed risk and benefits the patient agreed to proceed with open right inguinal hernia repair with mesh. Procedure: Patient brought to the OR and placed supine on the table. SCDs were placed and functioning. Preoperative ancef was administered. General anesthesia was induced. A muñoz catheter was placed without any complications. The right groin was prepped and draped in the usual sterile fashion. Local infiltration at the surgical site was done using lidocaine/bupivacaine with epinephrine. A 7cm incision was carried out over the right inguinal canal. Tissue dissection was carried down to the external oblique fascia using electrocautery. The fascia was incised and the cord structures were identified. Cord structures were dissected of the hernia sac. I identified a small indirect as well as a direct inguinal hernia. The hernia sacs were dissected and reduced into the abdomen. A cord lipoma was dissected and sent to pathology. The plug was placed at the site of the deep inguinal ring and the posterior wall of the inguinal canal was reinforced using a mesh patch. The plug was fixed using 2-0 ethibond to the cojoint ligament and inguinal ligament with interrupted sutures. The mesh patch was sutured to the cojoint tendon and the inguinal ligament using interrupted sutures with 2-0 ethibond. The external oblique fascia was closed using 3-0 vicryl. Skin was closed using 4-0 monocryl and surgical glue. Muñoz was removed. The patient woke up from anesthesia and was transferred to PACU without any complications.
[2024-06-10] MEDS: fentaNYL 50 mcg/mL INJ 2mL IVP ×2 (09:26→09:38)
--- NOTE | 2024-06-10 10:35 | ANE.PACU2 ---
Inpatient post-anesthesia follow up: Airway intact: Yes Vital signs: Temperature 98.1 F Pulse Rate 87 Respiratory Rate 16 Blood Pressure 128/92 Pulse Oximetry 92 Oxygen Delivery Me thod Room Air Oxygen Flow Rate 2 Fraction of Inspir ed Oxygen Hydration adequate: Yes Nausea and vomiting: No Pain level: 1 Mental status: Baseline
== END 2024-06-10 10:37 | disposition home or self-care (01) ==
PROVIDERS: PCP Family Medicine; Visit Provider Student in an Organized Health Care Education/Training Program
PROC: (CPT 49650; principal; 2024-06-10 08:35)
DX: K40.91 Unilateral inguinal hernia, without obstruction or gangrene, recurrent (principal); E11.42 Type 2 diabetes mellitus with diabetic polyneuropathy; F17.210 Nicotine dependence, cigarettes, uncomplicated; Z79.899 Other long term (current) drug therapy; Z88.5 Allergy status to narcotic agent
CPT/HCPCS: 49520; 51702; 88304; C1781; J0690; J1100; J1885; J2250; J2405; J2704; J3010; J3490; J7030; J9999